=== PATIENT | male | born 1950 ===

== ENCOUNTER 2016-04-02 14:54 | Outpatient (CLI) | payer MEDICARE ==
[2016-04-02 15:15] LABS: Albumin 4.2 g/dL (3.9-5); Albumin/Globulin Ratio 1.1 %; Bilirubin,Total 0.9 mg/dL (0.1-1.2); Calcium 9.7 mg/dL (8.4-10.2); Chloride 93.8 mmol/L (98-107); Potassium 4.8 mmol/L (3.6-5.0); Total Protein 8.1 g/dL (6.3-8.2)
== END 2016-04-02 14:55 | disposition home or self-care (01) ==
LOC: LABHHL 14:54
PROVIDERS: ATTEND Internal Medicine Cardiovascular Disease
DX: N18.3 Chronic kidney disease, stage 3 (moderate) (principal); I50.20 Unspecified systolic (congestive) heart failure; I48.91 Unspecified atrial fibrillation; D50.9 Iron deficiency anemia, unspecified
CPT/HCPCS: 36415; 80053

== ENCOUNTER 2016-04-09 16:14 | Outpatient (CLI) | payer MEDICARE ==
[2016-04-09 16:21] LABS: Basophils % (Auto) 1.4 % (0.0-1.8); Hematocrit 40.8 % (35.5-45.6); Hemoglobin 13.1 gm/dl (11.8-15.2); Mean Corpuscular HGB Conc 32 % (32-34); Mean Corpuscular Volume 78 fl (84-94); Platelet Count 154 K/mm3 (140-440); Red Blood Count 5.26 M/mm3 (3.65-5.03); Red Cell Distribution Width 14.6 % (13.2-15.2); White Blood Count 6.4 K/mm3 (4.5-11.0)
[2016-04-09 16:24] LABS: Mean Corpuscular Hemoglobin 25 pg (28-32)
[2016-04-09 17:03] LABS: Albumin 4.1 g/dL (3.9-5); Albumin/Globulin Ratio 1.1 %; Bilirubin,Total 0.6 mg/dL (0.1-1.2); Calcium 9.2 mg/dL (8.4-10.2); Chloride 89.8 mmol/L (98-107); Potassium 3.4 mmol/L (3.6-5.0); Total Protein 7.9 g/dL (6.3-8.2)
== END 2016-04-09 16:15 | disposition home or self-care (01) ==
LOC: LABHHL 16:14
PROVIDERS: ATTEND Internal Medicine
DX: Z45.2 Encounter for adjustment and management of vascular access device (principal); I50.23 Acute on chronic systolic (congestive) heart failure; I42.9 Cardiomyopathy, unspecified; D50.1 Sideropenic dysphagia
CPT/HCPCS: 36415; 80053; 85025

== ENCOUNTER 2016-04-29 15:44 | Outpatient (CLI) | payer MEDICARE ==
[2016-04-29 16:21] LABS: Albumin 4.3 g/dL (3.9-5); Albumin/Globulin Ratio 1.1 %; BUN/Creatinine Ratio 14.5; Bilirubin,Total 0.9 mg/dL (0.1-1.2); Calcium 9.5 mg/dL (8.4-10.2); Chloride 88.2 mmol/L (98-107); Potassium 3.7 mmol/L (3.6-5.0); Total Protein 8.2 g/dL (6.3-8.2)
== END 2016-04-29 15:45 | disposition home or self-care (01) ==
LOC: LABHHL 15:44
PROVIDERS: ATTEND Internal Medicine
DX: I50.23 Acute on chronic systolic (congestive) heart failure (principal); I42.9 Cardiomyopathy, unspecified; D50.9 Iron deficiency anemia, unspecified
CPT/HCPCS: 36415; 80053

== ENCOUNTER 2016-05-28 13:56 | Outpatient (CLI) | payer MEDICARE ==
[2016-05-28 14:50] LABS: Albumin 3.7 g/dL (3.9-5); Albumin/Globulin Ratio 1.1 %; BUN/Creatinine Ratio 13.18; Bilirubin,Total 1.7 mg/dL (0.1-1.2); Calcium 8.9 mg/dL (8.4-10.2)
[2016-05-28 15:52] LABS: Potassium 4.2 mmol/L (3.6-5.0)
== END 2016-05-28 13:57 | disposition home or self-care (01) ==
LOC: LABHHL 13:56
PROVIDERS: ATTEND Internal Medicine
DX: I50.23 Acute on chronic systolic (congestive) heart failure (principal); I42.9 Cardiomyopathy, unspecified; D50.9 Iron deficiency anemia, unspecified
CPT/HCPCS: 36415; 80053